=== PATIENT | female | born 1965 | race Caucasian/White ===

== ENCOUNTER 2019-01-03 09:24 | Outpatient (CLI) | payer BC ==
--- NOTE | 2019-01-03 10:25 | MMO ---
Left Breast MAMMO Unilat Diag DDI LT+JULIUS. CLINICAL HISTORY: Patient is 53 years old and is seen for diagnostic exam. The patient has the following family history of breast cancer: sister, late 30's. VIEWS: The views performed were: left craniocaudal with tomosynthesis; left mediolateral oblique with tomosynthesis; and left mediolateral with tomosynthesis. FILMS COMPARED: The present examination has been compared to a prior imaging study performed at [facility] on 12/20/2018. This study has been interpreted with the assistance of computer-aided detection. MAMMOGRAM FINDINGS: The calcs in the left lower inner breast are indeterminate and should be biopsied. IMPRESSION: FINDING IN THE LEFT BREAST IS SUSPICIOUS. A STEREOTACTIC BREAST BIOPSY IS RECOMMENDED. THE RESULTS OF THIS EXAM WERE SENT TO THE PATIENT. ACR BI-RADS Category 4 - Suspicious abnormality - biopsy should be considered D/W pt in person @ 1020 am MAMMOGRAPHY NOTE: 1. A negative mammogram report should not delay a biopsy if a dominant of clinically suspicious mass is present. 2. Approximately 10% to 15% of breast cancers are not detected by mammography. 3. Adenosis and dense breasts may obscure an underlying neoplasm. Reported by: KEYA CASTRO MD Electonically Signed: [id number]
== END 2019-01-03 09:25 | disposition home or self-care (01) ==
LOC: BICMAMMO 09:24
PROVIDERS: ATTEND Obstetrics & Gynecology
DX: R92.1 Mammographic calcification found on diagnostic imaging of breast (principal)
CPT/HCPCS: G0279

== ENCOUNTER 2019-02-23 10:18 | Outpatient (CLI) | payer BC ==
[2019-02-23 11:17] LABS: #Basophils 0.1 thou/uL (0.0-0.2); #Eosinphils 0.1 thou/uL (0.0-0.7); #Lymphocytes 2.3 thou/uL (1.20-3.40); #Monocytes 0.4 thou/uL (0.11-0.59); #Neutrophils 2.3 thou/uL (1.40-6.50); %Basophils 1.4 % (0.0-1.0); %Eosinophils 1.2 % (0.0-10.0); %Lymphocytes 44.4 % (21.0-51.0); %Monocytes 8.5 % (0.0-10.0); %Neutrophils 44.5 % (42.0-75.0); Hemoglobin 12.9 g/dL (12.0-16.0); Mean Corpuscular HGB CONC 32.8 g/dL (32.0-36.0); Mean Corpuscular Hemoglobin 29.3 pg (27.0-31.0); Mean Corpuscular Volume 89.3 fL (78.0-98.0); Mean Platelet Volume 6.7 fL (7.4-10.4); Platelet Count 297 thou/uL (130-400); RBC Distribution Width 12.8 % (11.5-14.5); Red Blood Cell (RBC) Count 4.42 mill/uL (4.20-5.40); White Blood Cell (WBC) Count 5.1 thou/uL (4.8-10.8)
[2019-02-23 11:47] LABS: Anion Gap 13 mmol/L (10-20); BUN (Urea Nitrogen) 9 mg/dL (9.8-20.1); Calc. Creatinine Clearance 0 mL/min (70-130); Calcium 9.2 mg/dL (7.8-10.44); Carbon Dioxide 24 mmol/L (22-29); Chloride 106 mmol/L (98-107); Estimated GFR-MDRD Greater than 90; Glucose 88 mg/dL (70-105); Sodium 139 mmol/L (136-145)
== END 2019-02-23 10:19 | disposition home or self-care (01) ==
LOC: LABBT 10:18
PROVIDERS: ATTEND Specialist
DX: D05.12 Intraductal carcinoma in situ of left breast (principal)
CPT/HCPCS: 80048; 85025

== ENCOUNTER 2019-02-28 06:36 | Day surgery (SDC) | payer BC ==
[2019-02-23 10:32] VITALS: BMI 27.1
--- NOTE | 2019-02-28 09:18 | NM ---
Left breast lymphoscintigraphy: 02/28/2019 HISTORY: Left breast intraductal carcinoma in situ FINDINGS: 0.421 mCi technetium 99m labeled filtered sulfur colloid was injected subcutaneously in 4 d ivided aliquots about the left nipple. Imaging demonstrates radiotracer activity at the injection sites as well as in the region of multiple left axillary nodes. IMPRESSION: Successful left breast lymphoscintigraphy as detailed above.
[2019-02-28] MEDS ORDERED: Ketorolac Tromethamine 30 MG/ML VIAL ONE (09:22)
[2019-02-28] MEDS ORDERED: Acetaminophen 500 MG TAB ONE (09:43)
[2019-02-28] MEDS ORDERED: Dexamethasone 20 MG/5 ML VIAL ONE (10:03)
[2019-02-28] MEDS ORDERED: Lidocaine 1% PF 5 ML VIAL ONE (10:03)
[2019-02-28] MEDS ORDERED: ePHEDrine/0.9% NaCl/PF SYRINGE 50 mg/10 ml ONE (10:03)
[2019-02-28] MEDS ORDERED: Ondansetron PF 4 MG/2 ML Vial ONE (10:03)
[2019-02-28] MEDS ORDERED: PROPOFOL 200 MG/20 ML VIAL ONE (10:03)
[2019-02-28] MEDS ORDERED: Lidocaine 1% w/Epinephrine 1:100K 20 ML VIAL ONE (10:14)
[2019-02-28] MEDS ORDERED: Bupivacaine 0.25% HCL 30 ML VIAL ONE (10:14)
[2019-02-28] MEDS ORDERED: Isosulfan Blue 50 MG/5 ML VIAL ONE (10:14)
[2019-02-28] MEDS ORDERED: Fentanyl 100 MCG/2 ML VIAL ONE (10:16)
[2019-02-28] MEDS ORDERED: HYDROmorphone 0.5 MG/0.5 ML SYRINGE ONE (10:17)
--- NOTE | 2019-02-28 13:07 | MMO ---
SPECIMEN RADIOGRAPH: DATE: 02/28/2019. HISTORY: Evaluate left breast specimen radiograph following excisional biopsy. FINDINGS: The patient is status post excisional biopsy on the left and the specimen is evaluated. Radiograph o f the specimen demonstrates the specimen to contain the localization wire as well as the localized ca lcifications and the post biopsy clip. IMPRESSION: Specimen radiograph of the left breast following surgical excision contains the post biopsy clip and the targeted microcalcifications. POS: KIM
--- NOTE | 2019-02-28 13:26 | MMO ---
NEEDLE LOCALIZATION WITH MAMMOGRAPHIC GUIDANCE OF LEFT BREAST: DATE: 02/28/2019. HISTORY: Excisional biopsy scheduled for suspicious calcifications in left breast. Presurgical needle localiz ation was requested. FINDINGS: Informed consent obtained prior to the procedure. The patient was placed in an L compression and the suspicious microcalcifications as well as the post biopsy clip were localized. The skin overlying the medial aspect of the left breast was prepped and draped in normal sterile fashion. The skin overlying the insertion site was anesthetized with 1% buffered Lidocaine. A 7.5 cm [place] ne edle was advanced and the wire was advanced and locked in place. Proper localization of the localiza tion wire and needle was confirmed with ML and CC imaging. The patient tolerated the procedure well. IMPRESSION: Successful needle localization with mammographic guidance of left breast microcalcifications and post biopsy clip prior to excisional biopsy. POS: KIM
--- NOTE | 2019-03-01 10:21 | OP ---
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 PROCEDURE PERFORMED: Left breast mammographic needle-localized lumpectomy with sentinel lymph node biopsy, additional anterior margin excision. ANESTHESIA: General endotracheal. INDICATIONS: The patient is a 53-year-old white female. She had recently presented with finding of microcalcifications within the left breast. Biopsy had revealed ductal carcinoma in situ, high grade and associated with comedo necrosis. She was taken to the operating room for needle-localized lumpectomy with sentinel lymph node biopsy. DESCRIPTION OF OPERATION: Informed consent was obtained. The patient was taken to the operating room, where general anesthesia was obtained with the patient in supine position. Left breast and axilla were prepped with ChloraPrep and draped in sterile fashion. Preoperative lymphoscintigraphy had been performed revealing left axillary sentinel lymph nodes. After anesthetic was obtained, the left breast was infiltrated with 3 mL of Lymphazurin in the periareolar subdermal tissue and massaged for 5 minutes. Attention was turned to the left axilla. Local anesthetic was infiltrated using 0.25% Marcaine with epinephrine and transverse axillary incision was created. Dissection was carried through skin and subcutaneous tissue. The superficial axillary fascia was incised. The Neoprobe was utilized to identify areas of maximum radio-intensity. Within the axilla, I was able to identify 3 sentinel lymph node with increased radio activity. Two of these had blue staining as well. These were each dissected circumferentially and removed intact. Investing lymphatics were divided between clamps and 2-0 silk ties. The wound was closed in layers with 3-0 and 4-0 Monocryl and additional local anesthetic was infiltrated in the wound. Attention was turned to the breast. The needle localization had been checked before surgery. It appeared that there were calcifications to the superior and anterior aspect of the localizing wire. However, the wire entered in a medial to lateral fashion and the wire was palpable at its tip under the skin of the lower breast. This was at approximately the 7 o'clock radian. I mapped the location of the needle and created an incision over the distal aspect of the needle. Dissection was carried through skin and subcutaneous tissue. Flaps were raised within the breast. Dissection was carried medially to identify the needle and at the point that I identified the needle about 3 cm from the tip, the needle was removed leaving the wire in place and the wire was replaced to the incision as I have created a counter incision involving the needle. The tissue into which the wire entered was grasped with Allis clamps and an attempt was made to dissect a wide core of tissue around this. I attempted to obtain generous margins of both the superior and anterior aspect. The problem was that the wire extended to almost immediately underneath the skin on the inferior aspect of the breast. The specimen was removed, wire intact and tissue surrounding the wire. It was removed from the field and submitted for specimen mammography. This did reveal that the biopsy clip and calcifications were in place within the lesion. I was concerned regarding the potential for positive margins on the anterior aspect, so I attempted to obtain an additional margin involving glandular tissue on the inferior and anterior aspect. This was submitted as a separate specimen. The remaining tissue anterior was all subcutaneous fatty tissue without any glandular area at all. Meticulous hemostasis was obtained. The wound was closed in layers with 3-0 and 4-0 Monocryl suture. An additional local anesthetic was infiltrated in the wound. Dermabond was placed externally to both incisions. There were no complications. The patient tolerated the procedure well and was taken to recovery room in stable condition. Job ID: [id number]
== END 2019-02-28 15:00 | disposition home or self-care (01) ==
LOC: SDC 06:36
PROVIDERS: ATTEND Specialist
PROC: 07B60ZX Excision of Left Axillary Lymphatic, Open Approach, Diagnostic (ICD-10-PCS; principal; 2019-02-28)
PROC: 0HBU0ZZ Excision of Left Breast, Open Approach (ICD-10-PCS; principal; 2019-02-28)
DX: D05.12 Intraductal carcinoma in situ of left breast (principal); Z79.899 Other long term (current) drug therapy
CPT/HCPCS: 19281; 76098; 78195; 88305; 88307; 88342; A9541; J0690; J1100; J1170; J1885; J2001; J2405; J2704; J3010; Q9968; S0020

== ENCOUNTER 2020-03-11 08:55 | Outpatient (CLI) | payer BC ==
--- NOTE | 2020-03-11 09:38 | MMO ---
Bilateral MAMMO Bilat Diag DDI+JULIUS. CLINICAL HISTORY: Patient is 54 years old and is seen for diagnostic exam. The patient has the following family history of breast cancer: sister, late 30's. The patient has a history of Stereotactic core biopsy procedure revealed ductal carcinoma in situ. in the left breast in January,. The patient has a history of left Lumpectomy in February, - malignant and left Stereotatic Biopsy in January, - malignant. VIEWS: The views performed were: bilateral craniocaudal with tomosynthesis; bilateral mediolateral oblique with tomosynthesis; and bilateral mediolateral with tomosynthesis. FILMS COMPARED: The present examination has been compared to prior imaging studies performed at [facility] on 12/20/2018, and at [facility] on 01/03/2019. This study has been interpreted with the assistance of computer-aided detection. MAMMOGRAM FINDINGS: The breasts are heterogeneously dense, which could obscure a lesion on mammography. Finding 1: There are stable benign appearing calcifications seen in both breasts. Finding 2: There is an area of architectural distortion with associated post-surgical scar seen in the left breast. There are no suspicious masses, suspicious calcifications, or new areas of architectural distortion. IMPRESSION: THERE IS NO MAMMOGRAPHIC EVIDENCE OF MALIGNANCY. A ROUTINE FOLLOW-UP MAMMOGRAM IN 1 YEAR IS RECOMMENDED. THE RESULTS OF THIS EXAM WERE SENT TO THE PATIENT. ACR BI-RADS Category 2 - Benign finding MAMMOGRAPHY NOTE: 1. A negative mammogram report should not delay a biopsy if a dominant of clinically suspicious mass is present. 2. Approximately 10% to 15% of breast cancers are not detected by mammography. 3. Adenosis and dense breasts may obscure an underlying neoplasm. Reported by: DAVON CUI MD Electonically Signed: [id number]
== END 2020-03-11 08:56 | disposition home or self-care (01) ==
LOC: BICMAMMO 08:55
PROVIDERS: ATTEND Specialist
DX: Z08 Encounter for follow-up examination after completed treatment for malignant neoplasm (principal); Z85.3 Personal history of malignant neoplasm of breast
CPT/HCPCS: 77066; G0279

== ENCOUNTER 2021-03-17 09:27 | Outpatient (CLI) | payer BC | END 2021-03-17 09:28 | disposition home or self-care (01) | LOC: BICMAMMO 09:27 | PROVIDERS: ATTEND Specialist | DX: D05.12 Intraductal carcinoma in situ of left breast (principal) | CPT/HCPCS: 77066; G0279 ==

== ENCOUNTER 2022-04-15 11:55 | Outpatient (CLI) | payer BC | END 2022-04-15 11:56 | disposition home or self-care (01) | LOC: BICMAMMO 11:55 | PROVIDERS: ATTEND Specialist | DX: Z12.31 Encounter for screening mammogram for malignant neoplasm of breast (principal); Z80.3 Family history of malignant neoplasm of breast; Z85.3 Personal history of malignant neoplasm of breast; Z98.890 Other specified postprocedural states | CPT/HCPCS: 77063; 77067 ==

== ENCOUNTER 2023-04-16 08:49 | Outpatient (CLI) | payer BC | END 2023-04-16 08:50 | disposition home or self-care (01) | LOC: BICMAMMO 08:49 | PROVIDERS: ATTEND Specialist | DX: Z12.31 Encounter for screening mammogram for malignant neoplasm of breast (principal); Z80.3 Family history of malignant neoplasm of breast; Z85.3 Personal history of malignant neoplasm of breast; Z98.890 Other specified postprocedural states | CPT/HCPCS: 77063; 77067 ==